=== PATIENT | female | born 1980 | race Caucasian/White ===

== ENCOUNTER 2016-10-16 12:07 | Emergency (ER) | payer MEDICAID, MEDICARE ==
[2016-10-16 12:51] VITALS: BP 108/66
--- NOTE | 2016-10-16 13:48 | EDM.PDOC ---
ED HPI GENERAL MEDICAL PROBLEM - General Chief Complaint: General Stated Complaint: PAIN IN AMPUTATED LEG Time Seen by Provider: 10/16/16 13:30 Source of Information: Reports: Patient History Limitations: Reports: No Limitations - History of Present Illness INITIAL COMMENTS - FREE TEXT/NARRATIVE: Adina presents today with complaints of right stump pain for several days. She reports the pain is throbbing, stabbing and feels like her skin is tearing at times. She reports her prosthetic is not fitting well and she has minimal padding over her femur. Adina also states the pain is different then nerve pain. She denies fever, chills, nausea or new wounds. She also reports she does not take medication for pain and has had no pain medication in the past 30 days. Adina is new to the area, stating she moved from [place], [place] and has had care in [place], [place] as well as [facility] in the [facility]. 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: Reports: Acetaminophen, NSAIDS Right Leg Pain Score (Numeric/FACES): 10 - Related Data Allergies Allergy/AdvReac Type Severity Reaction Status Date / Time No Known Allergies Allergy Verified 11/26/12 14:59 Home Meds: Home Meds Fludrocortisone [Fludrocortisone Acetate] 0.1 mg PO DAILY 11/26/12 [History] Hydrocortisone [Cortef] 1.5 tab PO DAILY 11/26/12 [History] ALPRAZolam [Xanax] 0.5 mg PO DAILY PRN 11/15/14 [History] PARoxetine [Paxil] 40 mg PO DAILY 11/15/14 [History] Past Medical History Other Musculoskeletal History: 6 surgeries on right ankle Other Immunologic History: addisons disease - Past Surgical History Other Musculoskeletal Surgeries/Procedures:: R BKA Social & Family History - Tobacco Use Smoking Status *Q: Unknown Ever Smoked Years of Tobacco use: 17 Packs/Tins Daily: 0.5 Used Tobacco, but Quit: No Second Hand Smoke Exposure: Yes - Alcohol Use Days Per Week of Alcohol Use: 0 - Recreational Drug Use Recreational Drug Use: No Drug Use in Last 12 Months: No 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 - Living Situation & Occupation Living situation: Reports: Single, with Significant Other Occupation: Employed ED ROS GENERAL - Review of Systems Review Of Systems: See Below Constitutional: Denies: Fever, Chills, Malaise, Weakness, Fatigue, Night Sweats , Decreased Appetite HEENT: Reports: No Symptoms Respiratory: Denies: Shortness of Breath, Wheezing, Cough, Sputum, Hemoptysis Cardiovascular: Denies: Chest Pain, Blood Pressure Problem, Dyspnea on Exertion , Edema, Lightheadedness, Palpitations, Syncope Endocrine: Reports: No Symptoms GI/Abdominal: Denies: Abdominal Pain, Constipation, Diarrhea, Flatus, Nausea, Vomiting : Denies: Flank Pain, Frequency, Hematuria, Incontinence, Pain, Urgency Musculoskeletal: Reports: Other (Right above knee amputee pain in stump) Skin: Denies: Bruising, Pruritis, Rash, Erythema, Wound, Change in Color, Lesions Neurological: Denies: Confusion, Dizziness, Headache, Numbness, Tingling, Weakness Psychiatric: Reports: No Symptoms Hematologic/Lymphatic: Reports: No Symptoms Immunologic: Reports: No Symptoms ED EXAM, GENERAL - Physical Exam Exam: See Below Exam Limited By: No Limitations General Appearance: Alert, WD/WN, No Apparent Distress Eye Exam: Bilateral Eye: EOMI, PERRL Ears: Normal External Exam, Normal Canal, Hearing Grossly Normal, Normal TMs Ear Exam: Bilateral Ear: Auricle Normal, Canal Normal, TM normal Nose: Normal Inspection, Normal Mucosa, No Blood Throat/Mouth: Normal Inspection, Normal Lips, Normal Teeth, Normal Gums, Normal Oropharynx, Normal Voice, No Airway Compromise Head: Atraumatic, Normocephalic Neck: Normal Inspection, Supple, Non-Tender, Full Range of Motion. No: Lymphadenopathy (R), Lymphadenopathy (L) Respiratory/Chest: No Respiratory Distress, Lungs Clear, Normal Breath Sounds, No Accessory Muscle Use, Chest Non-Tender Cardiovascular: Normal Peripheral Pulses, Regular Rate, Rhythm, No Edema, No Gallop, No Murmur, No Rub Peripheral Pulses: 2+: Radial (L), Radial (R), Femoral (L), Femoral (R), Dorsalis Pedis (L) GI/Abdominal: Normal Bowel Sounds, Soft, Non-Tender, No Organomegaly, No Distention, No Mass Back Exam: Normal Inspection, Full Range of Motion. No: CVA Tenderness (R), CVA Tenderness (L) Extremities: Normal Inspection, Normal Range of Motion, No Pedal Edema, Normal Capillary Refill, Leg Pain, Other (Pain with palpation over right stump and distal femur. ). No: Limited Range of Motion, Increased Warmth, Pallor, Redness Neurological: Alert, Oriented, CN II-XII Intact, Normal Cognition, No Motor/ Sensory Deficits Psychiatric: Normal Affect, Normal Mood Skin Exam: Warm, Dry, Intact, Normal Color, No Rash, Other (No areas of fluctuance. ) Lymphatic: No Adenopathy Course - Vital Signs Last Recorded V/S: Last Vital Signs Temp 36.1 C 10/16/16 13:09 Pulse 78 10/16/16 13:09 Resp 16 10/16/16 13:09 BP 108/66 10/16/16 13:09 Pulse Ox 98 10/16/16 13:09 - Orders/Labs/Meds Orders: Active Orders 24 hr Category Date Time Status Femur Min 2V Rt [CR] Stat Exams 10/16/16 13:41 Taken BASIC METABOLIC PANEL,BMP [CHEM] Stat Lab 10/16/16 13:52 Received Labs: Laboratory Tests 10/16/16 10/16/16 10/16/16 Range/Units 13:52 13:57 14:15 WBC 13.1 H (4.5-11.0) K/uL RBC 5.28 (3.30-5.50) M/uL Hgb 15.3 H D (12.0-15.0) g/dL Hct 43.2 (36.0-48.0) % MCV 82 (80-98) fL MCH 29 (27-31) pg MCHC 35 (32-36) % Plt Count 354 (150-400) K/uL Neut % (Auto) 65 (36-66) % Lymph % (Auto) 30 (24-44) % [place] % (Auto) 4 (2-6) % Eos % (Auto) 1 L (2-4) % Baso % (Auto) 1 (0-1) % Urine Color Yellow Urine Appearance Clear Urine pH 5.0 (4.5-8.0) Ur Specific [place]el 1.015 (1.008-1.030) Urine Protein Negative (NEGATIVE) mg/dL Urine Glucose (UA) Normal (NEGATIVE) mg/dL Urine Ketones Negative (NEGATIVE) mg/dL Urine Occult Blood Negative (NEGATIVE) Urine Nitrite Negative (NEGATIVE) Urine Bilirubin Negative (NEGATIVE) Urine Urobilinogen Normal (NORMAL) mg/dL Ur Leukocyte Esterase Negative (NEGATIVE) Urine RBC 0-5 (0-5) Urine WBC Not seen (0-5) Ur Epithelial Cells Rare Amorphous Sediment Not seen Urine Bacteria Not seen Urine Mucus Not seen Urine Opiates Screen Negative (NEGATIVE) Ur Oxycodone Screen Negative (NEGATIVE) Urine Methadone Screen Negative (NEGATIVE) Ur Propoxyphene Screen Negative (NEGATIVE) Ur Barbiturates Screen Negative (NEGATIVE) Ur Tricyclics Screen Negative (NEGATIVE) Ur Phencyclidine Scrn Negative (NEGATIVE) Ur Amphetamine Screen Negative (NEGATIVE) U Methamphetamines Scrn Negative (NEGATIVE) Urine MDMA Screen Negative (NEGATIVE) U Benzodiazepines Scrn Negative (NEGATIVE) U Cocaine Metab Screen Negative (NEGATIVE) U Marijuana (THC) Screen Negative (NEGATIVE) Meds: Medications Discontinued Medications Generic Name Dose Route Start Last Admin Trade Name Freq PRN Reason Stop Dose Admin Ketorolac Tromethamine 60 mg 10/16/16 14:16 10/16/16 14:19 Toradol IM 10/16/16 14:17 60 mg ONETIME ONE Administration - Radiology Interpretation Free Text/Narrative:: X-ray of femur reviewed, wet read, no acute findings. Radiologist read pending. - Re-Assessments/Exams Free Text/Narrative Re-Assessment/Exam: 10/16/16 14:00 [place] OYSTER PREPARER reviewed. No fills of opiate medication in the state of [place]. Fills in the state of [place]: 09/21/2016 oxycodone HCL 5mg #60 for 30 days. 08/24/2016 oxycodone HCL 5mg #60 for 30 days. 07/27/2016 oxycodone HCL 5mg #60 for 30 days. 07/14/2016 oxycodone HCL 5mg #30 for 15 days. 07/14/2016 Alprazolam 0.5mg #10 for 10 days. 10/16/16 14:29 Discussed completed lab work, OYSTER PREPARER and opiate use with patient. Patient will receive toradol IM, follow up and establish care with a provider at [facility] for further pain control. Free Text/Narrative Re-Assessment/Exam: 10/16/16 14:25 She will be provided contact information to establish care with a local provider. Departure - Departure Time of Disposition: 14:30 Disposition: Home, Self-Care 01 Condition: Good Clinical Impression: Pain of right lower extremity, H/O above knee amputation - Discharge Information Instructions: Phantom Limb Pain Referrals: PCP,None [Primary Care Provider] - Forms: ED Department Discharge Additional Instructions: You are suffering pain to your right stump. You were given toradol 60mg IM in the ER. You can continue to take the oxycodone you filled in [place]. Any other oxycodone will need to come from your primary provider. You can take ibuprofen and acetaminophen as directed for pain. There are no acute findings with the lab work and x-rays completed today. Management of your pain is best done with a primary care provider as well as working with a prosthetic specialist to maximize function and pain control. Make an appointment to establish care with a provider at [facility]. You would be best served with a referral from [facility] to a prosthetic specialist in the future. - My Orders Last 24 Hours: My Active Orders 10/16/16 13:41 Femur Min 2V Rt [CR] Stat 10/16/16 13:52 BASIC METABOLIC PANEL,BMP [CHEM] Stat - Assessment/Plan Last 24 Hours: My Active Orders 10/16/16 13:41 Femur Min 2V Rt [CR] Stat 10/16/16 13:52 BASIC METABOLIC PANEL,BMP [CHEM] Stat Assessment:: AKA right Painful right stump No acute lab or radiographic findings Plan: You are suffering pain to your right stump. You were given toradol 60mg IM in the ER. You can continue to take the oxycodone you filled in [place]. Any other oxycodone will need to come from your primary provider. You can take ibuprofen and acetaminophen as directed for pain. There are no acute findings with the lab work and x-rays completed today. Management of your pain is best done with a primary care provider as well as working with a prosthetic specialist to maximize function and pain control. Make an appointment to establish care with a provider at [facility]. You would be best served with a referral from [facility] to a prosthetic specialist in the future.
[2016-10-16] MEDS ORDERED: Ketorolac 60 MG/2 ML SDV IM ONE (14:16)
--- NOTE | 2016-10-16 14:48 | CR ---
Femur Min 2V Rt INDICATION: pain to right stump above knee amputation COMPARISON: None FINDINGS: 2 views. Amputation mid femoral shaft. No acute bony abnormality. Vascular stent in the p tylor.
== END 2016-10-16 15:01 | disposition home or self-care (01) ==
LOC: JP.ED 12:07
DX: M79.661 Pain in right lower leg (principal); Z89.611 Acquired absence of right leg above knee; Z79.899 Other long term (current) drug therapy; Z98.890 Other specified postprocedural states; X58.XXXA Exposure to other specified factors, initial encounter
CPT/HCPCS: 36415; 73552; 80048; 80305; 81001; 85025; 96372; 99284; J1885

== ENCOUNTER 2016-12-09 16:00 | Emergency (ER) | payer MEDICAID, MEDICARE ==
[2016-12-09] MEDS ORDERED: methylPREDNISolone Sodium Succinate 125 MG/2 ML SDV IVPUSH ONE (17:13)
[2016-12-09] MEDS ORDERED: Lactated Ringers 1,000 ML IV SCH (17:15)
[2016-12-09] MEDS ORDERED: Piperacillin/Tazobactam 4.5 GM in Sodium Chloride 0.9% 100 ML IV SCH (17:15)
[2016-12-09] MEDS ORDERED: EPINEPHrine 1:10,000 1 MG/10 ML Syringe IV ONE ×6 (17:17→18:05)
[2016-12-09] MEDS: EPINEPHrine 1:10,000 1 MG/10 ML Syringe IV SCH ×6 (17:17→18:05)
[2016-12-09] MEDS ORDERED: Atropine 0.1 MG/ML 10 ML Syringe IV ONE (17:41)
[2016-12-09] MEDS ORDERED: Atropine 0.1 MG/ML 10 ML Syringe IVPUSH ONE (17:41)
[2016-12-09] MEDS ORDERED: Dextrose 5%-Lactated Ringers 1,000 ML IV ONE (18:03)
[2016-12-09] MEDS ORDERED: Dextrose 5%-Lactated Ringers 1,000 ML IV SCH (18:03)
[2016-12-09] MEDS ORDERED: Sodium Chloride 0.9% 1,000 ML IV SCH (18:05)
[2016-12-09] MEDS ORDERED: Sodium Chloride 0.9% 1,000 ML IV ONE (18:05)
[2016-12-09] MEDS ORDERED: Lactated Ringers 1,000 ML IV ONE ×2 (18:05→18:13)
[2016-12-09] MEDS ORDERED: Rocuronium 50 MG/5 ML Vial IV ONE ×2 (18:26→18:27)
[2016-12-09] MEDS ORDERED: Rocuronium 50 MG/5 ML Vial ONE (18:27)
[2016-12-09] MEDS ORDERED: Sugammadex Sodium 200 MG/2 ML VIAL ONE (18:29)
[2016-12-09] MEDS ORDERED: Dextrose 5% in Water 250 ML ONE (18:43)
[2016-12-09] MEDS ORDERED: Piperacillin/Tazobactam 3.375 GM in Sodium Chloride 0.9% 50 ML IV ONE (19:00)
[2016-12-09] MEDS ORDERED: Piperacillin/Tazobactam 3.375 GM in Sodium Chloride 0.9% 50 ML IV SCH (19:00)
--- NOTE | 2016-12-09 19:05 | EDM.PDOC ---
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 On initial evaluation she did communicate with nursing staff able to get past medical history and medications completed as well as basic charting initial vital signs appeared stable. I presented to the room for examination she did not communicate with me however she had spontaneous respirations with pulse that was tachycardic and blood pressure still maintained peripheral pulse was palpable but sure skin was mildly I left the room to write orders and labs to get a workup started for sepsis. The nurse states she was still able to communicate with this patient while she was trying to establish an IV she became unresponsive CODE BLUE was called Generalized Pain Score (Numeric/FACES): 9 - Related Data Allergies Allergy/AdvReac Type Severity Reaction Status Date / Time No Known Allergies Allergy Verified 12/09/16 16:32 Home Meds: Home Meds ALPRAZolam [Alprazolam] 0.5 mg PO BEDTIME PRN 12/09/16 [History] Fludrocortisone [Florinef] 0.1 mg PO BIDMEALS 12/09/16 [History] Gabapentin [Neurontin] 300 mg PO TID 12/09/16 [History] Hydrocortisone 15 mg PO BID 12/09/16 [History] PARoxetine [Paxil] 40 mg PO DAILY 12/09/16 [History] oxyCODONE 5 mg PO Q4H PRN 12/09/16 [History] Past Medical History Respiratory History: Reports: Asthma, PE Genitourinary History: Reports: Acute Renal Failure 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 - Infectious Disease History Infectious Disease History: Reports: MRSA - Past Surgical History Musculoskeletal Surgical History: Reports: Amputation Social & Family History - Tobacco Use Smoking Status *Q: Current Every Day Smoker Years of Tobacco use: 15 Packs/Tins Daily: 0.5 - Caffeine Use Caffeine Use: Reports: None - Recreational Drug Use Recreational Drug Use: No ED ROS GENERAL - Review of Systems Review Of Systems: Unable To Obtain ED EXAM, GENERAL - Physical Exam Exam: See Below Free Text/Narrative:: On initial evaluation she was lynn ashen color noncommunicative but still moving extremities skin was starting to model pedal pulse was palpable +1 fingertips were blue spontaneous respiration with a tachycardic rate and rhythm S1 and S2. CODE BLUE Upon calling the code compressions were started immediately no respirations were noted no pulse was palpable no organizing risen was noted on the monitor. Please see code sheet for details on medication doses and times initially an IV could not be established proceeded to and I'll which was established below the left knee during compressions 1 mg epinephrine I O was provided rhythm check at that time revealed no respirations asystole oral airway was placed bag valve mask respirations were initiated Cipriano was placed continued with chest compressions. Next 125 mg Solu-Medrol was given IO the code continued for about 35 minutes at which time she received a total of 6 mg epinephrine with 0.5 mg of atropine attempted to do an advanced airway but could not pass the bougie more than 1 inch down the trachea elected to place a William airway which did provide adequate ventilation per bag with end-tidal CO2 in the yellow region however not bright yellow. An ultrasound was used in between rhythm checks which did show cardiac activity no palpable pulses were noted ventricle showed minimal fluid. At the end of the code with multiple asystole during rhythm check she developed an organized rhythm which appeared to be a wide complex tachycardia at a rate about 1:30 this then narrowed to a narrow complex tachycardia at around 110. Compressions were stopped at that time proceeded to try and gain better IV access fluids were running to the IO at maximum rate. A subclavian line was placed with the assistance of Dr. Rodas hospitalist, this provided better fluid boluses for total of 4 L also which time a norepinephrine drip was started at 4 mics provided a palpable pulse and a measurable blood pressure. Anesthesia had arrived to place a definitive airway she was given 30 mg Zemuron a 7.0 ET tube was placed please see anesthesia notes for details of procedure. After stabilized vital signs lab draw was performed chest x-ray performed blood cultures drawn. Antibiotics of Zosyn went with the helicopter crew, was given 1 amp of sodium bicarbonate. Transferred via EMS air care Course - Vital Signs Last Recorded V/S: Last Vital Signs Temp 100.2 F 12/09/16 16:15 Pulse 63 12/09/16 16:15 Resp 20 12/09/16 16:15 BP 137/80 12/09/16 16:15 Pulse Ox - Orders/Labs/Meds Orders: Active Orders 24 hr Category Date Time Status Vital Signs [RC] Q1H Care 12/09/16 17:12 Active Chest 1V Frontal [CR] Stat Exams 12/09/16 Taken CULTURE BLOOD [BC] Urgent Lab 12/09/16 16:05 Received CULTURE BLOOD [BC] Urgent Lab 12/09/16 18:50 Received DRUG SCREEN, URINE [URCHEM] Stat Lab 12/09/16 17:13 Uncollected UA W/MICROSCOPIC [URIN] Stat Lab 12/09/16 17:13 Uncollected Lactated Ringers [Ringers, Lactated] 1,000 ml Med 12/09/16 17:15 Active IV ASDIRECTED Piperacillin/Tazobactam [Zosyn] 3.375 gm Med 12/09/16 19:00 Active Sodium Chloride 0.9% [Normal Saline] 50 ml IV Q6H Piperacillin/Tazobactam [Zosyn] 4.5 gm Med 12/09/16 17:15 Active Sodium Chloride 0.9% [Normal Saline] 100 ml IV Q6H Vancomycin 1 gm Med 12/09/16 18:47 Active Sodium Chloride 0.9% [Normal Saline] 250 ml IV ONETIME Blood Culture x2 Reflex Set [OM.PC] Urgent Oth 12/09/16 17:12 Ordered Medication Orders Lactated Ringer's (Ringers, Lactated) 1,000 mls @ 125 mls/hr IV ASDIRECTED GABRIEL Piperacillin Sod/Tazobactam (Sod 4.5 gm/ Sodium Chloride) 100 mls @ 200 mls/hr IV Q6H GABRIEL Piperacillin Sod/Tazobactam (Sod 3.375 gm/ Sodium Chloride) 50 mls @ 100 mls/ hr IV Q6H GABRIEL Vancomycin HCl 1 gm/ Sodium (Chloride) 250 mls @ 150 mls/hr IV ONETIME ONE Stop: 12/09/16 20:26 Labs: Laboratory Tests 12/09/16 12/09/16 12/09/16 Range/Units 18:08 18:08 18:08 WBC 33.8 H* (4.5-11.0) K/uL RBC 4.82 (3.30-5.50) M/uL Hgb 14.0 (12.0-15.0) g/dL Hct 40.8 (36.0-48.0) % MCV 85 (80-98) fL MCH 29 (27-31) pg MCHC 34 (32-36) % Plt Count 269 (150-400) K/uL Add Manual Diff Yes Neutrophils % (Manual) 55 (36-66) % Band Neutrophils % 16 H (5-11) % Lymphocytes % (Manual) 22 L (24-44) % Monocytes % (Manual) 7 H (2-6) % Puncture Site ABG pH (7.350-7.450) ABG pCO2 (35.0-42.0) mmHg ABG pO2 (75.0-100.0) mmHg ABG HCO3 (22.0-26.0) mmol/L ABG Total CO2 (21.0-25.0) mmol/L ABG O2 Saturation (95.0-98.0) % ABG O2 Content (15.0-23.0) %vol ABG Base Excess mm/L ABG Hemoglobin (12.0-16.0) g/dL ABG Oxyhemoglobin % ABG Carboxyhemoglobin (0.0-1.6) % ABG Methemoglobin % Alf Test O2 Delivery Device Sodium 136 L (140-148) mmol/L Potassium 5.2 (3.6-5.2) mmol/L Chloride 104 (100-108) mmol/L Carbon Dioxide 10 L (21-32) mmol/L Anion Gap 27.2 H (5.0-14.0) mmol/L BUN 37 H (7-18) mg/dL Creatinine 3.4 H (0.6-1.0) mg/dL Est Cr Clr Drug Dosing 21.62 mL/min Estimated GFR (MDRD) 15 L (>60) Glucose 263 H (74-106) mg/dL Lactic Acid 12.4 H (0.4-2.0) mmol/L Calcium 6.8 L* (8.5-10.1) mg/dL Total Bilirubin 0.3 (0.2-1.0) mg/dL AST 575 H (15-37) U/L ALT 512 H (12-78) U/L Alkaline Phosphatase 59 (46-116) U/L C-Reactive Protein 9.09 H (0.0-0.3) mg/dL Total Protein 3.2 L (6.4-8.2) g/dL Albumin 1.3 L (3.4-5.0) g/dL Globulin 1.9 L (2.3-3.5) g/dL Albumin/Globulin Ratio 0.7 L (1.2-2.2) Salicylates (2.0-20.0) mg/dL Acetaminophen (10.0-30.0) ug/mL 12/09/16 12/09/16 12/09/16 Range/Units 18:08 18:08 18:53 WBC (4.5-11.0) K/uL RBC (3.30-5.50) M/uL Hgb (12.0-15.0) g/dL Hct (36.0-48.0) % MCV (80-98) fL MCH (27-31) pg MCHC (32-36) % Plt Count (150-400) K/uL Add Manual Diff Neutrophils % (Manual) (36-66) % Band Neutrophils % (5-11) % Lymphocytes % (Manual) (24-44) % Monocytes % (Manual) (2-6) % Puncture Site A-line ABG pH 6.818 L* (7.350-7.450) ABG pCO2 49.4 H (35.0-42.0) mmHg ABG pO2 158.0 H (75.0-100.0) mmHg ABG HCO3 7.6 L (22.0-26.0) mmol/L ABG Total CO2 8.5 L (21.0-25.0) mmol/L ABG O2 Saturation 95.5 (95.0-98.0) % ABG O2 Content 12.1 L (15.0-23.0) %vol ABG Base Excess -25.2 mm/L ABG Hemoglobin 8.8 L (12.0-16.0) g/dL ABG Oxyhemoglobin 95.3 % ABG Carboxyhemoglobin -0.6 L (0.0-1.6) % ABG Methemoglobin 0.8 % Alf Test Pass O2 Delivery Device Resuscitation bag Sodium (140-148) mmol/L Potassium (3.6-5.2) mmol/L Chloride (100-108) mmol/L Carbon Dioxide (21-32) mmol/L Anion Gap (5.0-14.0) mmol/L BUN (7-18) mg/dL Creatinine (0.6-1.0) mg/dL Est Cr Clr Drug Dosing mL/min Estimated GFR (MDRD) (>60) Glucose (74-106) mg/dL Lactic Acid (0.4-2.0) mmol/L Calcium (8.5-10.1) mg/dL Total Bilirubin (0.2-1.0) mg/dL AST (15-37) U/L ALT (12-78) U/L Alkaline Phosphatase (46-116) U/L C-Reactive Protein (0.0-0.3) mg/dL Total Protein (6.4-8.2) g/dL Albumin (3.4-5.0) g/dL Globulin (2.3-3.5) g/dL Albumin/Globulin Ratio (1.2-2.2) Salicylates 2.7 (2.0-20.0) mg/dL Acetaminophen 0.0 L (10.0-30.0) ug/mL Meds: Medications Generic Name Dose Route Start Last Admin Trade Name Freq PRN Reason Stop Dose Admin Lactated Ringer's 1,000 mls @ 125 mls/hr 12/09/16 17:15 Ringers, Lactated IV ASDIRECTED GABRIEL Piperacillin Sod/Tazobactam 100 mls @ 200 mls/hr 12/09/16 17:15 Sod 4.5 gm/ Sodium Chloride IV Q6H GABRIEL Piperacillin Sod/Tazobactam 50 mls @ 100 mls/hr 12/09/16 19:00 Sod 3.375 gm/ Sodium Chloride IV Q6H GABRIEL Vancomycin HCl 1 gm/ Sodium 250 mls @ 150 mls/hr 12/09/16 18:47 Chloride IV 12/09/16 20:26 ONETIME ONE Discontinued Medications Generic Name Dose Route Start Last Admin Trade Name Freq PRN Reason Stop Dose Admin Heparin Sodium (Porcine) Confirm 12/09/16 18:40 Heparin Lock Flush 100 Units/Ml Administered 10/07/17 18:41 Dose 500 units .ROUTE .STK-MED ONE Heparin Sodium (Porcine) Confirm 12/09/16 18:52 Heparin Lock Flush 100 Units/Ml Administered 12/09/16 18:53 Dose 500 units .ROUTE .STK-MED ONE Dextrose/Water Confirm 12/09/16 18:43 Dextrose 5% In Water Administered 12/09/16 18:44 Dose 250 mls @ as directed .ROUTE .STK-MED ONE Methylprednisolone Sodium Succinate 125 mg 12/09/16 17:13 Solu-Medrol IVPUSH 12/09/16 17:14 ONETIME ONE Rocuronium [place] Confirm 12/09/16 18:27 Zemuron Administered 12/09/16 18:28 Dose 50 mg .ROUTE .STK-MED ONE Sodium Bicarbonate 50 meq 12/09/16 19:12 Sodium Bicarbonate 8.4% IVPUSH 12/09/16 19:13 ONETIME ONE Departure - Departure Time of Disposition: 19:43 Disposition: DC/Tfer to Acute Hospital 02 Condition: Poor Clinical Impression: Cardiac arrest, Septic shock - Discharge Information Referrals: PCP,None [Primary Care Provider] - Forms: ED Department Discharge - My Orders Last 24 Hours: My Active Orders 12/09/16 Chest 1V Frontal [CR] Stat 12/09/16 16:05 CULTURE BLOOD [BC] Urgent 12/09/16 17:12 Vital Signs [RC] Q1H Blood Culture x2 Reflex Set [OM.PC] Urgent 12/09/16 17:13 DRUG SCREEN, URINE [URCHEM] Stat UA W/MICROSCOPIC [URIN] Stat 12/09/16 17:15 Lactated Ringers [Ringers, Lactated] 1,000 ml IV ASDIRECTED Piperacillin/Tazobactam [Zosyn] 4.5 gm Sodium Chloride 0.9% [Normal Saline] 100 ml IV Q6H 12/09/16 18:47 Vancomycin 1 gm Sodium Chloride 0.9% [Normal Saline] 250 ml IV ONETIME 12/09/16 18:50 CULTURE BLOOD [BC] Urgent 12/09/16 19:00 Piperacillin/Tazobactam [Zosyn] 3.375 gm Sodium Chloride 0.9% [Normal Saline] 50 ml IV Q6H - Assessment/Plan Last 24 Hours: My Active Orders 12/09/16 Chest 1V Frontal [CR] Stat 12/09/16 16:05 CULTURE BLOOD [BC] Urgent 12/09/16 17:12 Vital Signs [RC] Q1H Blood Culture x2 Reflex Set [OM.PC] Urgent 12/09/16 17:13 DRUG SCREEN, URINE [URCHEM] Stat UA W/MICROSCOPIC [URIN] Stat 12/09/16 17:15 Lactated Ringers [Ringers, Lactated] 1,000 ml IV ASDIRECTED Piperacillin/Tazobactam [Zosyn] 4.5 gm Sodium Chloride 0.9% [Normal Saline] 100 ml IV Q6H 12/09/16 18:47 Vancomycin 1 gm Sodium Chloride 0.9% [Normal Saline] 250 ml IV ONETIME 12/09/16 18:50 CULTURE BLOOD [BC] Urgent 12/09/16 19:00 Piperacillin/Tazobactam [Zosyn] 3.375 gm Sodium Chloride 0.9% [Normal Saline] 50 ml IV Q6H Plan: Assessment Acuity = acute Site and laterality = cardiac arrest, systemic shock cardiogenic Etiology = unclear etiology Manifestations = intubation on pressors Location of injury = Home Lab values = WBC elevated at 33.8 consistent leukocytosis, sodium low at 136 consistent hyponatremia creatinine elevated at 3.4 consistent with acute renal failure stage G for lactic acid elevated 12.4 calcium low at 6.8 consistent hypocalcemia AST elevated 575 ALTs elevated at 512 consistent elevated liver enzymes CRP elevated 9.09 and albumin low at 3.2 consistent hypoalbuminemia Plan Discussed case with Dr. Vickers learning design specialist [facility] Critical care time 90 minutes Patient was in agreement with the plan all questions were answered, they were instructed to return to the emergency department or call for worsening symptoms. This note was dictated using [employer] voice recognition software please call with any questions.
[2016-12-09] MEDS ORDERED: Sodium Bicarbonate 8.4% 50 MEQ/50 ML Syringe IVPUSH ONE (19:12)
--- NOTE | 2016-12-09 20:56 | PCM.SN ---
- Free Text/Narrative Note: This patient is a 36-year-old woman who I was asked to see by Dr. stark persistent in management during a code and critical care situation in the emergency department. Despite her relatively young age she has a history of significant medical problems including Champaign's disease since . 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 She has had previous episodes of sepsis and severe illness. She arrived at the emergency department weak, initially had adequate blood pressure associated with a sinus tachycardia. After initial intake the nurse returned to check on her and found her to be unresponsive with no palpable pulse or blood pressure. Code was called and CPR initiated. Initially she was found to have asystole, received 6 doses of epinephrine and also during the course of this receive some atropine. Recheck of heart rhythm showed that she was in fine ventricular fibrillation and she was defibrillated, after that was in sinus rhythm with no obtainable blood pressure. It was estimated that she had received approximately [address] stark placed a William tube for airway management and she was being bagged with supplemental oxygen during this period of time. A central line was placed in the right subclavian vein and she was given vigorous fluid resuscitation. With these interventions her systolic pressure came up to the low 80s. Norepinephrine was initiated at 4 g, following this pressure stabilized and was 104/62 at the time of transfer. Anesthesia was called and Mr. Vanegas is able to place an endotracheal tube. She had adequate oxygenation following intubation. She will be transferred to [facility] in [facility] via air ambulance. 90 minutes of critical care time was spent in the emergency department providing direct management up until the time of transport.
--- NOTE | 2016-12-10 00:31 | ANES ---
DATE OF SERVICE: 12/09/2016 Adina is a 36-year-old female patient, in our emergency room. I was requested to respond for the patient in cardiac arrest, needing airway by Dr. cAuna Officer, DARA #[id number]. Upon arrival, I found the patient unresponsive, being ventilated with a [place] Airway with an oxygenation of 97%, heart rate of 110, and blood pressure palpated at 80. The patient was very rigid, infused 30 mg after finding no contraindication to medication as far as allergies and the patient's history. The patient at that point had been in cardiac arrest for quite some time prior to my arrival. I placed a #7.5 endotracheal tube with ease, good visualization of the vocal cords with cricoid pressure. Upon completion, cuff was inflated. I had moisture in the endotracheal tube with bilateral chest rise with lung sounds with positive end-tidal CO2. I secured the tube at 23 cm. The patient tolerated that procedure quite well. No change in vital signs at that point, although she did deoxygenate to 80 in the short time that it took me to place endotracheal tube with it back up to 100% upon completion. I reported off to Dr. Lin and again no change in the patient's status at that point. Jadiel Vanegas CRNA /[id number]
--- NOTE | 2016-12-11 09:36 | CR ---
Portable chest There is a nasogastric tube coiled within the stomach. There is a endotracheal tube positioned with t he tip 4 cm above the yvonne. There is a right central venous catheter descending down into the SVC. There are shallow lung volumes. There is basilar atelectasis. There are no infiltrates or effusions. Impression: 1. Tubes and lines as described above. 2. Shallow lung volumes with basilar atelectasis.
[2016-12-12 12:19] VITALS: BP 82/00
== END 2016-12-09 19:25 ==
LOC: JP.ED 16:00 → EDBD 16:00 → MERGE 16:00 → JP.ED 19:25
DX: A41.9 Sepsis, unspecified organism (principal); I46.9 Cardiac arrest, cause unspecified; R65.21 Severe sepsis with septic shock; F17.210 Nicotine dependence, cigarettes, uncomplicated
CPT/HCPCS: 31500; 36415; 36556; 36600; 71010; 80053; 82803; 83605; 85025; 86140; 87040; 92950; 93005; 93010; 96365; 96375; 99291; 99292; G0480; J0171; J0461; J2543; J2930; J7040; J7042; J7050; J7060; J7120; 99285-25

== ENCOUNTER 2017-03-18 13:33 | Emergency (ER) | payer MEDICAID ==
[2017-03-18 14:10] VITALS: BP 113/74
--- NOTE | 2017-03-18 14:32 | EDM.PDOC ---
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 Right Leg Pain Score (Numeric/FACES): 7 - Related Data Allergies Allergy/AdvReac Type Severity Reaction Status Date / Time No Known Allergies Allergy Verified 03/18/17 13:54 Home Meds: Home Meds Hydrocortisone [Cortef] 1.5 tab PO DAILY 11/26/12 [History] Fludrocortisone [Florinef] 0.1 mg PO BIDMEALS 12/09/16 [History] Hydrocortisone 10 mg PO BEDTIME 12/09/16 [History] PARoxetine [Paxil] 40 mg PO DAILY 12/09/16 [History] oxyCODONE 5 mg PO BID PRN 12/09/16 [History] Past Medical History Cardiovascular History: Reports: Blood Clots/VTE/DVT, Prior Cardiac Arrest ( December 2016), Other (See Below) Other Cardiovascular History: blood clot in heart in 2015 Respiratory History: Reports: Asthma, Bronchitis, Recurrent, PE Genitourinary History: Reports: Acute Renal Failure 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: Musculoskeletal History: Reports: Osteoarthritis, Other (See Below) Other Musculoskeletal History: spinalstenosis Psychiatric History: Reports: Anxiety, Depression 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 Hematologic History: Reports: Anticoagulation Therapy, Blood Transfusion(s) Immunologic History: Reports: Immunosuppression, Other (See Below) 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 - Infectious Disease History Infectious Disease History: Reports: Chicken Pox, Mononucleosis, MRSA, Other ( See Below) Other Infectious Disease History: 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 - Living Situation & Occupation Living situation: Reports: Single, with Significant Other Occupation: Employed Review of Systems - Review of Systems Review Of Systems: See Below Constitutional: Reports: No Symptoms Respiratory: Reports: No Symptoms Cardiovascular: Reports: No Symptoms GI/Abdominal: Reports: No Symptoms Musculoskeletal: Reports: Other (Stump pain) ED EXAM, GENERAL - Physical Exam Exam: See Below Free Text/Narrative:: Examination of her stop on the right side she does have a small bruise about the size of $0.50 piece on the distal aspect there is some edema appreciated of the end of the stump there is no significant erythema not tender to the touch Exam Limited By: No Limitations General Appearance: Alert, WD/WN, No Apparent Distress Respiratory/Chest: No Respiratory Distress Course - Vital Signs Last Recorded V/S: Last Vital Signs Temp 96.8 F 03/18/17 14:08 Pulse 76 03/18/17 14:08 Resp 16 03/18/17 14:08 BP 113/74 03/18/17 14:08 Pulse Ox 98 03/18/17 14:08 - Orders/Labs/Meds Orders: Active Orders 24 hr Category Date Time Status VL Duplex Lwr Ext Veins Ltd Rt [US] Stat Exams 03/18/17 15:27 Ordered Labs: Laboratory Tests 03/18/17 Range/Units 14:47 D-Dimer, Quantitative 1090 H (0.0-400.0) ng/mL Departure - Departure Time of Disposition: 16:21 Disposition: Home, Self-Care 01 Condition: Good Clinical Impression: Contusion of bone - Discharge Information Referrals: Reyes Nunes NP [Primary Care Provider] - Forms: ED Department Discharge Additional Instructions: Please followup with your primary care provider in 3-5 days if not better, please call return to the emergency department with worsening of symptoms. - My Orders Last 24 Hours: My Active Orders 03/18/17 15:27 VL Duplex Lwr Ext Veins Ltd Rt [US] Stat - Assessment/Plan Last 24 Hours: My Active Orders 03/18/17 15:27 VL Duplex Lwr Ext Veins Ltd Rt [US] Stat Plan: Assessment Acuity = acute Site and laterality = bone contusion right leg Etiology = secondary to a fall Manifestations = none Location of injury = Home Lab values = d-dimer was elevated and thousand however ultrasound was negative for DVT Plan Discharged home continue regular medications follow-up with primary care as needed This note was dictated using [employer] voice recognition software please call with any questions on syntax or roxanna.
--- NOTE | 2017-03-19 09:20 | US ---
VL Duplex Lwr Ext Veins Ltd Rt FINDINGS: Duplex imaging was performed from the right common femoral through the popliteal veins. The veins demonstrate complete compressibility without evidence of intraluminal thrombus. There is lupis l phasic variation of the waveforms with respiration. There is augmented flow with calf compression. IMPRESSION: There is no evidence for right lower extremity deep venous thrombosis.
== END 2017-03-18 16:29 | disposition home or self-care (01) ==
LOC: JP.ED 13:33
DX: T87.89 Other complications of amputation stump (principal); S80.11XA Contusion of right lower leg, initial encounter; Z79.899 Other long term (current) drug therapy; F17.210 Nicotine dependence, cigarettes, uncomplicated; W19.XXXA Unspecified fall, initial encounter
CPT/HCPCS: 36415; 85379; 93971-26; 93971-RT; 99283; 99284-25

== ENCOUNTER 2020-03-07 01:11 | Inpatient (IN) | payer MEDICAID ==
[2020-03-07] MEDS ORDERED: Sodium Chloride 0.9% 10 ML Syringe FLUSH PRN ×2 (01:34→03:16)
[2020-03-07] MEDS ORDERED: Hydrocortisone Sodium Succinate 100 MG/2 ML SDV IVPUSH ONE (01:34)
[2020-03-07] MEDS ORDERED: Sodium Chloride 0.9% 1,000 ML IV ONE ×2 (01:37→01:38)
--- NOTE | 2020-03-07 02:17 | EDM.PDOC ---
ED HPI GENERAL MEDICAL PROBLEM - General Chief Complaint: General Stated Complaint: MEDICAL ON RAMP Time Seen by Provider: 03/07/20 01:25 Source of Information: Reports: Patient, Old Records History Limitations: Reports: No Limitations - History of Present Illness INITIAL COMMENTS - FREE TEXT/NARRATIVE: Adina is a 39-year-old female presenting to the ED for an [place]'s crisis. Patient has a history of [place]'s disease since and is normally on hydrocortisone. She has been contacting her primary care provider, Suzanne Cruz PA-C to refill her hydrocortisone but has not had a response despite several weeks of trying to get this refilled. The patient initially tried to take half the dose of her hydrocortisone over the last several weeks, however, she ran out of the medication completely 10 days ago. She has been experiencing increased fatigue, thirst, chest pain, shortness of breath, diaphoresis, nausea and vomiting over the last several days. 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 Lower Back Pain Score (Numeric/FACES): 8 - Related Data Allergies Allergy/AdvReac Type Severity Reaction Status Date / Time No Known Allergies Allergy Verified 03/07/20 01:26 Home Meds: Home Meds Hydrocortisone [Cortef] 1.5 tab PO DAILY 11/26/12 [History] Fludrocortisone [Florinef] 0.1 mg PO BID 12/09/16 [History] Hydrocortisone 10 mg PO BEDTIME 12/09/16 [History] Albuterol Sulfate [Proair Hfa] 2 puff IH Q4H PRN 03/07/20 [History] DULoxetine [Cymbalta] 60 mg PO DAILY 03/07/20 [History] atorvaSTATin Calcium [Lipitor] 40 mg PO DAILY 03/07/20 [History] cloNIDine HCL [Catapres] 0.1 mg PO BID 03/07/20 [History] tiZANidine HCl [Zanaflex] 2 mg PO Q8H PRN 03/07/20 [History] Past Medical History Cardiovascular History: Reports: Blood Clots/VTE/DVT, Prior Cardiac Arrest, Other (See Below) Other Cardiovascular History: blood clot in heart in 2016 Respiratory History: Reports: Asthma, Bronchitis, Recurrent, PE Genitourinary History: Reports: Acute Renal Failure [employer] History: Reports: Musculoskeletal History: Reports: Osteoarthritis, Other (See Below) Other Musculoskeletal History: spinalstenosis Psychiatric History: Reports: Anxiety, Depression 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 Hematologic History: Reports: Anticoagulation Therapy, Blood Transfusion(s) Immunologic History: Reports: Immunosuppression, Other (See Below) 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 - Infectious Disease History Infectious Disease History: Reports: Chicken Pox, Mononucleosis, MRSA, Other (See Below) Other Infectious Disease History: 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 - Past Surgical History HEENT Surgical History: Reports: Naso-Sinus Surgery, Tonsillectomy Musculoskeletal Surgical History: Reports: Amputation Other Musculoskeletal Surgeries/Procedures:: R BKA Social & Family History - Tobacco Use Tobacco Use Status *Q: Current Every Day Tobacco User Years of Tobacco use: 25 Packs/Tins Daily: 1 Used Tobacco, but Quit: No Second Hand Smoke Exposure: Yes - Caffeine Use Caffeine Use: Reports: Coffee, Soda - Recreational Drug Use Recreational Drug Use: No - Living Situation & Occupation Living situation: Reports: Single, with Significant Other Occupation: Employed ED ROS GENERAL - Review of Systems Review Of Systems: See Below Constitutional: Reports: Malaise, Weakness, Fatigue, Diaphoresis, Decreased Appetite HEENT: Reports: No Symptoms Respiratory: Reports: Shortness of Breath Cardiovascular: Reports: Chest Pain Endocrine: Reports: Fatigue, Polydypsia GI/Abdominal: Reports: Abdominal Pain, Nausea, Vomiting : Reports: No Symptoms Musculoskeletal: Reports: No Symptoms Skin: Reports: No Symptoms Neurological: Reports: Weakness Psychiatric: Reports: No Symptoms Hematologic/Lymphatic: Reports: No Symptoms Immunologic: Reports: No Symptoms ED EXAM, GENERAL - Physical Exam Exam: See Below Exam Limited By: No Limitations General Appearance: Alert, Anxious, Mild Distress Eye Exam: Bilateral Eye: EOMI, PERRL Throat/Mouth: Normal Lips, Normal Voice, Other (Dry mucous membranes) Head: Atraumatic, Normocephalic Neck: Normal Inspection, Supple, Non-Tender, Full Range of Motion. No: Lymphadenopathy (R), Lymphadenopathy (L) Respiratory/Chest: No Respiratory Distress, Lungs Clear, Normal Breath Sounds, No Accessory Muscle Use, Chest Non-Tender Cardiovascular: Normal Peripheral Pulses, Regular Rate, Rhythm, No Edema, No Gallop, No JVD, No Murmur, No Rub Peripheral Pulses: 2+: Radial (L), Radial (R) GI/Abdominal: Normal Bowel Sounds, Soft, Non-Tender, No Organomegaly, No Distention, No Abnormal Bruit, No Mass (Female) Exam: Deferred Rectal (Female) Exam: Deferred Back Exam: Normal Inspection, Full Range of Motion Extremities: Normal Range of Motion, Non-Tender, No Pedal Edema, Other (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) Neurological: Alert, Oriented, Normal Cognition, No Motor/Sensory Deficits Psychiatric: Anxious Skin Exam: Warm, Dry, Intact, Normal Color, No Rash Lymphatic: No Adenopathy Course - Vital Signs Last Recorded V/S: Last Vital Signs Temp 36.1 C 03/07/20 02:15 Pulse 81 03/07/20 02:15 Resp 12 03/07/20 02:15 BP 91/49 L 03/07/20 02:15 Pulse Ox 96 03/07/20 02:15 - Orders/Labs/Meds Orders: Active Orders 24 hr Category Date Time Status ACTH, PLASMA Stat Lab 03/07/20 01:57 Received Sodium Chloride 0.9% [Normal Saline] 1,000 ml Med 03/07/20 01:37 Active IV .BOLUS Sodium Chloride 0.9% [Normal Saline] 1,000 ml Med 03/07/20 01:38 Active IV .BOLUS Sodium Chloride 0.9% [Saline Flush] Med 03/07/20 01:34 Active 10 ml FLUSH ASDIRECTED PRN Saline Lock Insert [OM.PC] Routine Oth 03/07/20 01:34 Ordered Medication Orders Sodium Chloride (Normal Saline) 1,000 mls @ 999 mls/hr IV .BOLUS ONE Stop: 03/07/20 02:37 Last Admin: 03/07/20 01:55 Dose: 999 mls/hr Documented by: ELEN Sodium Chloride (Normal Saline) 1,000 mls @ 999 mls/hr IV .BOLUS ONE Stop: 03/07/20 02:38 Sodium Chloride (Saline Flush) 10 ml FLUSH ASDIRECTED PRN PRN Reason: Keep Vein Open Labs: Laboratory Tests 03/07/20 03/07/20 Range/Units 01:57 01:57 WBC 11.7 H (4.5-11.0) K/uL RBC 4.94 (3.30-5.50) M/uL Hgb 13.0 (12.0-15.0) g/dL Hct 39.8 (36.0-48.0) % MCV 81 (80-98) fL MCH 26 L (27-31) pg MCHC 33 (32-36) % Plt Count 353 (150-400) K/uL Neut % (Auto) 55 (36-66) % Lymph % (Auto) 34 (24-44) % Stark % (Auto) 9 H (2-6) % Eos % (Auto) 2 (2-4) % Baso % (Auto) 0 (0-1) % Sodium 130 L (140-148) mmol/L Potassium 4.1 (3.6-5.2) mmol/L Chloride 97 L (100-108) mmol/L Carbon Dioxide 25 D (21-32) mmol/L Anion Gap 12.1 (5.0-14.0) mmol/L BUN 10 D (7-18) mg/dL Creatinine 0.9 D (0.6-1.0) mg/dL Est Cr Clr Drug Dosing 79.34 mL/min Estimated GFR (MDRD) > 60 (>60) Glucose 104 (74-106) mg/dL Calcium 9.3 D (8.5-10.1) mg/dL Total Bilirubin 0.2 (0.2-1.0) mg/dL AST 22 D (15-37) U/L ALT 35 D (12-78) U/L Alkaline Phosphatase 83 (46-116) U/L Total Protein 7.2 (6.4-8.2) g/dL Albumin 3.2 L (3.4-5.0) g/dL Globulin 4.0 H (2.3-3.5) g/dL Albumin/Globulin Ratio 0.8 L (1.2-2.2) Meds: Medications Generic Name Dose Route Start Last Admin Trade Name Freq PRN Reason Stop Dose Admin Sodium Chloride 1,000 mls @ 999 mls/hr 03/07/20 01:37 03/07/20 01:55 Normal Saline IV 03/07/20 02:37 999 mls/hr .BOLUS ONE Administration Sodium Chloride 1,000 mls @ 999 mls/hr 03/07/20 01:38 Normal Saline IV 03/07/20 02:38 .BOLUS ONE Sodium Chloride 10 ml 03/07/20 01:34 Saline Flush FLUSH ASDIRECTED PRN Keep Vein Open Discontinued Medications Generic Name Dose Route Start Last Admin Trade Name Miriam PRN Reason Stop Dose Admin Hydrocortisone Sodium Succinate 100 mg 03/07/20 01:34 03/07/20 01:53 Solu-Cortef IVPUSH 03/07/20 01:35 100 mg ONETIME ONE Administration - Re-Assessments/Exams Free Text/Narrative Re-Assessment/Exam: 03/07/20 02:29 labs reviewed showing a normal CBC. The comprehensive metabolic panel shows a sodium of 130 Departure - Departure Time of Disposition: 02:30 Disposition: Admitted As Inpatient 67 Condition: Good Clinical Impression: Addisonian crisis - Discharge Information Referrals: PCP,None [Primary Care Provider] - Forms: ED Department Discharge Care Plan Goals: ED HPI GENERAL MEDICAL PROBLEM - General Chief Complaint: General Stated Complaint: MEDICAL ON RAMP Time Seen by Provider: 03/07/20 01:25 Source of Information: Reports: Patient, Old Records History Limitations: Reports: No Limitations - History of Present Illness INITIAL COMMENTS - FREE TEXT/NARRATIVE: Adina is a 39-year-old female presenting to the ED for an [place]'s crisis. Patient has a history of [place]'s disease since and is normally on hydrocortisone. She has been contacting her primary care provider, Suzanne Cruz PA-C to refill her hydrocortisone but has not had a response despite several weeks of trying to get this refilled. The patient initially tried to take half the dose of her hydrocortisone over the last several weeks, however, she ran out of the medication completely 10 days ago. She has been experiencing increased fatigue, thirst, chest pain, shortness of breath, diaphoresis, nausea and vomiting over the last several days. 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 Lower Back Pain Score (Numeric/FACES): 8 - Related Data Allergies Allergy/AdvReac Type Severity Reaction Status Date / Time No Known Allergies Allergy Verified 03/07/20 01:26 Home Meds: Home Meds Hydrocortisone [Cortef] 1.5 tab PO DAILY 11/26/12 [History] Fludrocortisone [Florinef] 0.1 mg PO BID 12/09/16 [History] Hydrocortisone 10 mg PO BEDTIME 12/09/16 [History] Albuterol Sulfate [Proair Hfa] 2 puff IH Q4H PRN 03/07/20 [History] DULoxetine [Cymbalta] 60 mg PO DAILY 03/07/20 [History] atorvaSTATin Calcium [Lipitor] 40 mg PO DAILY 03/07/20 [History] cloNIDine HCL [Catapres] 0.1 mg PO BID 03/07/20 [History] tiZANidine HCl [Zanaflex] 2 mg PO Q8H PRN 03/07/20 [History] Past Medical History Cardiovascular History: Reports: Blood Clots/VTE/DVT, Prior Cardiac Arrest, Other (See Below) Other Cardiovascular History: blood clot in heart in 2015 Respiratory History: Reports: Asthma, Bronchitis, Recurrent, PE Genitourinary History: Reports: Acute Renal Failure [employer] History: Reports: Musculoskeletal History: Reports: Osteoarthritis, Other (See Below) Other Musculoskeletal History: spinalstenosis Psychiatric History: Reports: Anxiety, Depression 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 Hematologic History: Reports: Anticoagulation Therapy, Blood Transfusion(s) Immunologic History: Reports: Immunosuppression, Other (See Below) 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 - Infectious Disease History Infectious Disease History: Reports: Chicken Pox, Mononucleosis, MRSA, Other (See Below) Other Infectious Disease History: 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 - Past Surgical History HEENT Surgical History: Reports: Naso-Sinus Surgery, Tonsillectomy Musculoskeletal Surgical History: Reports: Amputation Other Musculoskeletal Surgeries/Procedures:: R BKA Social & Family History - Tobacco Use Tobacco Use Status *Q: Current Every Day Tobacco User Years of Tobacco use: 25 Packs/Tins Daily: 1 Used Tobacco, but Quit: No Second Hand Smoke Exposure: Yes - Caffeine Use Caffeine Use: Reports: Coffee, Soda - Recreational Drug Use Recreational Drug Use: No - Living Situation & Occupation Living situation: Reports: Single, with Significant Other Occupation: Employed ED ROS GENERAL - Review of Systems Review Of Systems: See Below Constitutional: Reports: Malaise, Weakness, Fatigue, Diaphoresis, Decreased Appetite HEENT: Reports: No Symptoms Respiratory: Reports: Shortness of Breath Cardiovascular: Reports: Chest Pain Endocrine: Reports: Fatigue, Polydypsia GI/Abdominal: Reports: Abdominal Pain, Nausea, Vomiting : Reports: No Symptoms Musculoskeletal: Reports: No Symptoms Skin: Reports: No Symptoms Neurological: Reports: Weakness Psychiatric: Reports: No Symptoms Hematologic/Lymphatic: Reports: No Symptoms Immunologic: Reports: No Symptoms ED EXAM, GENERAL - Physical Exam Exam: See Below Exam Limited By: No Limitations General Appearance: Alert, Anxious, Mild Distress Eye Exam: Bilateral Eye: EOMI, PERRL Throat/Mouth: Normal Lips, Normal Voice, Other (Dry mucous membranes) Head: Atraumatic, Normocephalic Neck: Normal Inspection, Supple, Non-Tender, Full Range of Motion. No: Lymphadenopathy (R), Lymphadenopathy (L) Respiratory/Chest: No Respiratory Distress, Lungs Clear, Normal Breath Sounds, No Accessory Muscle Use, Chest Non-Tender Cardiovascular: Normal Peripheral Pulses, Regular Rate, Rhythm, No Edema, No Gallop, No JVD, No Murmur, No Rub Peripheral Pulses: 2+: Radial (L), Radial (R) GI/Abdominal: Normal Bowel Sounds, Soft, Non-Tender, No Organomegaly, No Distention, No Abnormal Bruit, No Mass (Female) Exam: Deferred Rectal (Female) Exam: Deferred Back Exam: Normal Inspection, Full Range of Motion Extremities: Normal Range of Motion, Non-Tender, No Pedal Edema, Other (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) Neurological: Alert, Oriented, Normal Cognition, No Motor/Sensory Deficits Psychiatric: Anxious Skin Exam: Warm, Dry, Intact, Normal Color, No Rash Lymphatic: No Adenopathy Course - Vital Signs Last Recorded V/S: Last Vital Signs Temp 36.1 C 03/07/20 02:15 Pulse 81 03/07/20 02:15 Resp 12 03/07/20 02:15 BP 91/49 L 03/07/20 02:15 Pulse Ox 96 03/07/20 02:15 - Orders/Labs/Meds Orders: Active Orders 24 hr Category Date Time Status ACTH, PLASMA Stat Lab 03/07/20 01:57 Received Sodium Chloride 0.9% [Normal Saline] 1,000 ml Med 03/07/20 01:37 Active IV .BOLUS Sodium Chloride 0.9% [Normal Saline] 1,000 ml Med 03/07/20 01:38 Active IV .BOLUS Sodium Chloride 0.9% [Saline Flush] Med 03/07/20 01:34 Active 10 ml FLUSH ASDIRECTED PRN Saline Lock Insert [OM.PC] Routine Oth 03/07/20 01:34 Ordered Medication Orders Sodium Chloride (Normal Saline) 1,000 mls @ 999 mls/hr IV .BOLUS ONE Stop: 03/07/20 02:37 Last Admin: 03/07/20 01:55 Dose: 999 mls/hr Documented by: ELEN Sodium Chloride (Normal Saline) 1,000 mls @ 999 mls/hr IV .BOLUS ONE Stop: 03/07/20 02:38 Sodium Chloride (Saline Flush) 10 ml FLUSH ASDIRECTED PRN PRN Reason: Keep Vein Open Labs: Laboratory Tests 03/07/20 03/07/20 Range/Units 01:57 01:57 WBC 11.7 H (4.5-11.0) K/uL RBC 4.94 (3.30-5.50) M/uL Hgb 13.0 (12.0-15.0) g/dL Hct 39.8 (36.0-48.0) % MCV 81 (80-98) fL MCH 26 L (27-31) pg MCHC 33 (32-36) % Plt Count 353 (150-400) K/uL Neut % (Auto) 55 (36-66) % Lymph % (Auto) 34 (24-44) % Stark % (Auto) 9 H (2-6) % Eos % (Auto) 2 (2-4) % Baso % (Auto) 0 (0-1) % Sodium 130 L (140-148) mmol/L Potassium 4.1 (3.6-5.2) mmol/L Chloride 97 L (100-108) mmol/L Carbon Dioxide 25 D (21-32) mmol/L Anion Gap 12.1 (5.0-14.0) mmol/L BUN 10 D (7-18) mg/dL Creatinine 0.9 D (0.6-1.0) mg/dL Est Cr Clr Drug Dosing 79.34 mL/min Estimated GFR (MDRD) > 60 (>60) Glucose 104 (74-106) mg/dL Calcium 9.3 D (8.5-10.1) mg/dL Total Bilirubin 0.2 (0.2-1.0) mg/dL AST 22 D (15-37) U/L ALT 35 D (12-78) U/L Alkaline Phosphatase 83 (46-116) U/L Total Protein 7.2 (6.4-8.2) g/dL Albumin 3.2 L (3.4-5.0) g/dL Globulin 4.0 H (2.3-3.5) g/dL Albumin/Globulin Ratio 0.8 L (1.2-2.2) Meds: Medications Generic Name Dose Route Start Last Admin Trade Name Freq PRN Reason Stop Dose Admin Sodium Chloride 1,000 mls @ 999 mls/hr 03/07/20 01:37 03/07/20 01:55 Normal Saline IV 03/07/20 02:37 999 mls/hr .BOLUS ONE Administration Sodium Chloride 1,000 mls @ 999 mls/hr 03/07/20 01:38 Normal Saline IV 03/07/20 02:38 .BOLUS ONE Sodium Chloride 10 ml 03/07/20 01:34 Saline Flush FLUSH ASDIRECTED PRN Keep Vein Open Discontinued Medications Generic Name Dose Route Start Last Admin Trade Name Freq PRN Reason Stop Dose Admin Hydrocortisone Sodium Succinate 100 mg 03/07/20 01:34 03/07/20 01:53 Solu-Cortef IVPUSH 03/07/20 01:35 100 mg ONETIME ONE Administration - Re-Assessments/Exams Free Text/Narrative Re-Assessment/Exam: 03/07/20 02:29 labs reviewed showing a normal CBC. The comprehensive metabolic panel shows a sodium of 130 Departure - Departure Time of Disposition: 02:30 Disposition: Admitted As Inpatient 66 Condition: Good Clinical Impression: Addisonian crisis - Discharge Information Referrals: PCP,None [Primary Care Provider] - Forms: ED Department Discharge Sepsis Event Note (ED) - Evaluation Sepsis Screening Result: No Definite Risk - Focused Exam Vital Signs: Vital Signs Temp Pulse Resp BP Pulse Ox 03/07/20 02:15 36.1 C 81 12 91/49 L 96 03/07/20 02:05 36.1 C 105 H 16 114/76 98 03/07/20 01:14 36.1 C 105 H 16 114/76 98 - My Orders Last 24 Hours: My Active Orders 03/07/20 01:34 Sodium Chloride 0.9% [Saline Flush] 10 ml FLUSH ASDIRECTED PRN Saline Lock Insert [OM.PC] Routine 03/07/20 01:37 Sodium Chloride 0.9% [Normal Saline] 1,000 ml IV .BOLUS 03/07/20 01:38 Sodium Chloride 0.9% [Normal Saline] 1,000 ml IV .BOLUS 03/07/20 01:57 ACTH, PLASMA Stat - Assessment/Plan Last 24 Hours: My Active Orders 03/07/20 01:34 Sodium Chloride 0.9% [Saline Flush] 10 ml FLUSH ASDIRECTED PRN Saline Lock Insert [OM.PC] Routine 03/07/20 01:37 Sodium Chloride 0.9% [Normal Saline] 1,000 ml IV .BOLUS 03/07/20 01:38 Sodium Chloride 0.9% [Normal Saline] 1,000 ml IV .BOLUS 03/07/20 01:57 ACTH, PLASMA Stat I discussed the case with Dr. Rodas and recommend admission of the patient for further infusion of hydrocortisone 50 mg every 6 hours. Sepsis Event Note (ED) - Evaluation Sepsis Screening Result: No Definite Risk - Focused Exam Vital Signs: Vital Signs Temp Pulse Resp BP Pulse Ox 03/07/20 02:15 36.1 C 81 12 91/49 L 96 03/07/20 02:05 36.1 C 105 H 16 114/76 98 03/07/20 01:14 36.1 C 105 H 16 114/76 98 - Problem List & Annotations (1) Addisonian crisis SNOMED Code(s): 36502388 Code(s): E27.2 - ADDISONIAN CRISIS Status: Acute Priority: High Current Visit: Yes - Problem List Review Problem List Initiated/Reviewed/Updated: Yes - My Orders Last 24 Hours: My Active Orders 03/07/20 01:34 Sodium Chloride 0.9% [Saline Flush] 10 ml FLUSH ASDIRECTED PRN Saline Lock Insert [OM.PC] Routine 03/07/20 01:37 Sodium Chloride 0.9% [Normal Saline] 1,000 ml IV .BOLUS 03/07/20 01:38 Sodium Chloride 0.9% [Normal Saline] 1,000 ml IV .BOLUS 03/07/20 01:57 ACTH, PLASMA Stat - Assessment/Plan Last 24 Hours: My Active Orders 03/07/20 01:34 Sodium Chloride 0.9% [Saline Flush] 10 ml FLUSH ASDIRECTED PRN Saline Lock Insert [OM.PC] Routine 03/07/20 01:37 Sodium Chloride 0.9% [Normal Saline] 1,000 ml IV .BOLUS 03/07/20 01:38 Sodium Chloride 0.9% [Normal Saline] 1,000 ml IV .BOLUS 03/07/20 01:57 ACTH, PLASMA Stat
--- NOTE | 2020-03-07 02:59 | PCM.HP.2 ---
H&P History of Present Illness - General Date of Service: 03/07/20 Admit Problem/Dx: Admission Diagnosis/Problem Admission Diagnosis/Problem Dukes's disease Source of Information: Patient, Family, Old Records, Provider, RN Notes Reviewed History Limitations: Reports: No Limitations - History of Present Illness Initial Comments - Free Text/Narative: Ms. Melissa is a 39-year-old woman who was admitted through the emergency department with weakness, lightheadedness, nausea, secondary to adrenal insufficiency. She has had a known history of Dukes's disease and has started to run out of her hydrocortisone over the past 2 weeks. Starting 2 weeks ago she decreased her dose because of limited supply and ran out approximately 6 days ago. She is attempted to obtain refill through the clinic, but this has been unsuccessful. Since then has become progressively more fatigued weak and lightheaded. She presented to the emergency department this evening because of worsening symptoms. 3 years ago experienced crisis and presented to the emergency department, shortly after presenting experience cardiac arrest requiring CPR and prolonged intervention. 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 There is also a history of pulmonary emboli. Lower Back Pain Score (Numeric/FACES): 8 - Related Data Allergies/Adverse Reactions: Allergies Allergy/AdvReac Type Severity Reaction Status Date / Time No Known Allergies Allergy Verified 03/07/20 01:26 Home Medications: Home Meds Hydrocortisone [Cortef] 1.5 tab PO DAILY 11/26/12 [History] Fludrocortisone [Florinef] 0.1 mg PO BID 12/09/16 [History] Hydrocortisone 10 mg PO BEDTIME 12/09/16 [History] Albuterol Sulfate [Proair Hfa] 2 puff IH Q4H PRN 03/07/20 [History] DULoxetine [Cymbalta] 60 mg PO DAILY 03/07/20 [History] atorvaSTATin Calcium [Lipitor] 40 mg PO DAILY 03/07/20 [History] cloNIDine HCL [Catapres] 0.1 mg PO BID 03/07/20 [History] tiZANidine HCl [Zanaflex] 2 mg PO Q8H PRN 03/07/20 [History] Past Medical History Cardiovascular History: Reports: Blood Clots/VTE/DVT, Prior Cardiac Arrest, Other (See Below) Other Cardiovascular History: blood clot in heart in 2016 Respiratory History: Reports: Asthma, Bronchitis, Recurrent, PE Genitourinary History: Reports: Acute Renal Failure [employer]IST History: Reports: Musculoskeletal History: Reports: Osteoarthritis, Other (See Below) Other Musculoskeletal History: spinalstenosis Psychiatric History: Reports: Anxiety, Depression 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 Hematologic History: Reports: Anticoagulation Therapy, Blood Transfusion(s) Immunologic History: Reports: Immunosuppression, Other (See Below) 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 - Infectious Disease History Infectious Disease History: Reports: Chicken Pox, Mononucleosis, MRSA, Other (See Below) Other Infectious Disease History: 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 - Past Surgical History HEENT Surgical History: Reports: Naso-Sinus Surgery, Tonsillectomy Musculoskeletal Surgical History: Reports: Amputation Other Musculoskeletal Surgeries/Procedures:: R BKA Social & Family History - Tobacco Use Tobacco Use Status *Q: Current Every Day Tobacco User Years of Tobacco use: 25 Packs/Tins Daily: 1 Used Tobacco, but Quit: No Second Hand Smoke Exposure: Yes - Caffeine Use Caffeine Use: Reports: Coffee, Soda - Recreational Drug Use Recreational Drug Use: No - Living Situation & Occupation Living situation: Reports: Single, with Significant Other Occupation: Employed H&P Review of Systems - Review of Systems: Review Of Systems: See Below General: Reports: Malaise, Weakness, Fatigue HEENT: Reports: No Symptoms Pulmonary: Reports: No Symptoms Cardiovascular: Reports: No Symptoms Gastrointestinal: Reports: Nausea, Vomiting. Denies: Abdominal Pain, Black Stool, Bloody Stool, Constipation, Diarrhea, Difficulty Swallowing, Distension Genitourinary: Reports: No Symptoms Musculoskeletal: Reports: No Symptoms Skin: Reports: No Symptoms Psychiatric: Reports: No Symptoms Neurological: Reports: No Symptoms Hematologic/Lymphatic: Reports: No Symptoms Immunologic: Reports: No Symptoms Exam - Exam Exam: See Below - Vital Signs Vital Signs: Last Vital Signs Temp 97.0 F 03/07/20 02:15 Pulse 81 03/07/20 02:15 Resp 12 03/07/20 02:15 BP 91/49 L 03/07/20 02:15 Pulse Ox 96 03/07/20 02:15 Weight: 186 lb - Exam Quality Assessment: DVT Prophylaxis General: Alert, Oriented, Cooperative, Mild Distress HEENT: Conjunctiva Clear, Hearing Intact, Mucosa Moist & [place], Normal Nasal Septum, Posterior Pharynx Clear, Pupils Equal Neck: Supple, Trachea Midline, +2 Carotid Pulse wo Bruit Lungs: Clear to Auscultation, Normal Respiratory Effort Cardiovascular: Regular Rate, Regular Rhythm, Normal S1, Normal S2. No: Systol ic Murmur, Diastolic Murmur GI/Abdominal Exam: Soft, Non-Tender, No Organomegaly, No Distention Back Exam: Normal Inspection, Full Range of Motion Extremities: Non-Tender, Other (Status post amputation right lower leg) Skin: Warm, Dry, Intact Neurological: Cranial Nerves Intact, Strength Equal Bilateral, Normal Speech, Normal Tone, Sensation Intact. No: Focal Deficit Neuro Extensive - Mental Status: Alert, Oriented x3, Normal Mood/Affect, Normal Cognition, Memory Intact - Patient Data Lab Results Last 24 hrs: Laboratory Results - last 24 hr 03/07/20 03/07/20 Range/Units 01:57 01:57 WBC 11.7 H (4.5-11.0) K/uL RBC 4.94 (3.30-5.50) M/uL Hgb 13.0 (12.0-15.0) g/dL Hct 39.8 (36.0-48.0) % MCV 81 (80-98) fL MCH 26 L (27-31) pg MCHC 33 (32-36) % Plt Count 353 (150-400) K/uL Neut % (Auto) 55 (36-66) % Lymph % (Auto) 34 (24-44) % [place] % (Auto) 9 H (2-6) % Eos % (Auto) 2 (2-4) % Baso % (Auto) 0 (0-1) % Sodium 130 L (140-148) mmol/L Potassium 4.1 (3.6-5.2) mmol/L Chloride 97 L (100-108) mmol/L Carbon Dioxide 25 D (21-32) mmol/L Anion Gap 12.1 (5.0-14.0) mmol/L BUN 10 D (7-18) mg/dL Creatinine 0.9 D (0.6-1.0) mg/dL Est Cr Clr Drug Dosing 79.34 mL/min Estimated GFR (MDRD) > 60 (>60) Glucose 104 (74-106) mg/dL Calcium 9.3 D (8.5-10.1) mg/dL Total Bilirubin 0.2 (0.2-1.0) mg/dL AST 22 D (15-37) U/L ALT 35 D (12-78) U/L Alkaline Phosphatase 83 (46-116) U/L Total Protein 7.2 (6.4-8.2) g/dL Albumin 3.2 L (3.4-5.0) g/dL Globulin 4.0 H (2.3-3.5) g/dL Albumin/Globulin Ratio 0.8 L (1.2-2.2) Result Diagrams: 03/07/20 01:57 03/07/20 01:57 Sepsis Event Note - Evaluation Sepsis Screening Result: No Definite Risk - Focused Exam Vital Signs: Vital Signs Temp Pulse Resp BP Pulse Ox 03/07/20 02:15 97.0 F 81 12 91/49 L 96 03/07/20 02:05 97 F 105 H 16 114/76 98 03/07/20 01:14 97 F 105 H 16 114/76 98 *Q Meaningful Use (ADM) - VTE Risk Assess *Q Each Risk Factor Represents 1 Point: Obesity ( BMI > 25 kg/m2) Total Score 1 Point Risk Factors: 1 Each Risk Factor Represents 2 Points: None Total Score 2 Point Risk Factors: 0 Each Risk Factor Represents 3 Points: History of DVT/PE Total Score 3 Point Risk Factors: 3 Each Risk Factor Represents 5 Points: None Total Score 5 Point Risk Factors: 0 Venous Thromboembolism Risk Factor Score *Q: 4 Problem List Initiated/Reviewed/Updated: Yes Orders Last 24hrs: Active Orders 24 hr Category Date Time Status Patient Status Manage Transfer [TRANSFER] Routine ADT 03/07/20 02:51 Ordered ACTH, PLASMA Stat Lab 03/07/20 01:57 Received Sodium Chloride 0.9% [Saline Flush] Med 03/07/20 01:34 Active 10 ml FLUSH ASDIRECTED PRN Saline Lock Insert [OM.PC] Routine Oth 03/07/20 01:34 Ordered Resuscitation Status Routine Resus Stat 03/07/20 02:53 Ordered Medication Orders Sodium Chloride (Saline Flush) 10 ml FLUSH ASDIRECTED PRN PRN Reason: Keep Vein Open Assessment/Plan Comment:: ASSESSMENT AND PLAN PRINCE'S DISEASE-she has run out of her hydrocortisone. Lower dose for the first week and no medication over this last week. She is developed progressive weakness lightheadedness with nausea. History of cardiac arrest related to adrenal insufficiency 3 years ago. She is feeling significantly improved after receiving 100 mg of hydrocortisone in the emergency department as well as IV fluids. Sodium level mildly low, potassium level is within normal range -Hydrocortisone 50 mg IV every 6 hours x4 doses -Normal saline 125 mg/h -ACTH and cortisol level pending -Follow-up electrolytes Sunday morning MAINTENANCE ISSUES -DVT prophylaxis; Lovenox 40 mg subcu daily -GI prophylaxis; not indicated -Blackman catheter; not indicated -Nutrition; regular diet -Nicotine dependence; not required CODE STATUS-full code ADMISSION STATUS-patient will be admitted to inpatient status, expect at least a 2 night hospital stay for evaluation and management of problems as outlined above. At the time of this admission I do not reasonably expected evaluation and management of this problem will require more than a 96 hour hospital stay. DISPOSITION-anticipate discharge to home after the hospital stay. PRIMARY CARE PROVIDER-Suzanne Cruz - Mortality Measure Prognosis:: Good
[2020-03-07] MEDS ORDERED: Albuterol 8 GM Inhaler INH PRN (03:16)
[2020-03-07] MEDS ORDERED: Polyethylene Glycol 3350 Powder 17 GM Packet PO PRN (03:16)
[2020-03-07] MEDS ORDERED: Acetaminophen 325 MG Tab PO PRN (03:16)
[2020-03-07] MEDS ORDERED: Enoxaparin 40 MG/0.4 ML Syringe SUBCUT SCH (03:16)
[2020-03-07] MEDS ORDERED: Ondansetron 4 MG/2 ML SDV IV PRN (03:16)
[2020-03-07] MEDS: Sodium Chloride 0.9% 1,000 ML IV SCH ×2 (04:15→12:18)
[2020-03-07] MEDS: tiZANidine 2 MG Tab PO PRN ×2 (04:21→22:04)
[2020-03-07] MEDS: Hydrocortisone Sodium Succinate 100 MG/2 ML SDV IVPUSH SCH ×3 (07:33→19:20)
[2020-03-07] MEDS: atorvaSTATin 20 MG Tab PO SCH (09:44)
[2020-03-07] MEDS: Fludrocortisone 0.1 MG Tab PO SCH ×2 (09:44→22:04)
[2020-03-07] MEDS: DULoxetine 30 MG Cap PO SCH (09:44)
[2020-03-07] MEDS: Nicotine 21 MG/24 Hr Patch TRDERM SCH (14:11)
[2020-03-07] MEDS ORDERED: Calcium Carbonate 500 MG Tab.Chew PO PRN (21:48)
[2020-03-08] MEDS: Hydrocortisone Sodium Succinate 100 MG/2 ML SDV IVPUSH SCH (01:35)
[2020-03-08] MEDS: DULoxetine 30 MG Cap PO SCH (08:38)
[2020-03-08] MEDS: Fludrocortisone 0.1 MG Tab PO SCH (08:38)
[2020-03-08] MEDS: atorvaSTATin 20 MG Tab PO SCH (08:39)
[2020-03-08] MEDS: Nicotine 21 MG/24 Hr Patch TRDERM SCH (08:40)
[2020-03-08 08:47] VITALS: BP 108/49; PULSE 70
[2020-03-08] MEDS ORDERED: Enoxaparin 40 MG/0.4 ML Syringe SUBCUT SCH (09:00)
--- NOTE | 2020-03-08 10:20 | PCM.DCSUM1 ---
Discharge Summary - Hospital Course Brief History: Ms. Melissa is a 39-year-old woman who was admitted through the emergency department with weakness, lightheadedness, and nausea, secondary to addisonian crisis. - Discharge Data Discharge Date: 03/08/20 Discharge Disposition: Home, Self-Care 01 Condition: Stable - Referral to Home Health Primary Care Physician: PCP None - Discharge Diagnosis/Problem(s) (1) Addisonian crisis SNOMED Code(s): 52702372 ICD Code: E27.2 - ADDISONIAN CRISIS Status: Acute Priority: High Current Visit: Yes - Patient Summary/Data Hospital Course: Ms. Melissa is a 39-year-old woman who was admitted through the emergency department with weakness, lightheadedness, nausea, secondary to adrenal insufficiency. She has had a known history of Lafayette's disease and has started to run out of her hydrocortisone over the past 2 weeks. Starting 2 weeks ago she decreased her dose because of limited supply and ran out approximately 6 days ago. She is attempted to obtain refill through the clinic, but this has been unsuccessful. Since then has become progressively more fatigued weak and lightheaded. She presented to the emergency department this evening because of worsening symptoms. 3 years ago experienced crisis and presented to the emergency department, shortly after presenting experience cardiac arrest requiring CPR and prolonged intervention. 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 There is also a history of pulmonary emboli. While in the emergency department she did receive hydrocortisone 100 mg IV and almost immediately noted improvement in her symptoms. She was given IV fluid bolus in the emergency department and continuous infusion of IV fluid after admission. She was placed on protocol for addisonian crisis and received further hydrocortisone 50 mg IV every 6 hours x4 doses. By the day of discharge she was feeling significantly improved and was started back on her usual replacement doses of hydrocortisone. On discharge she will be given a prescription for hydrocortisone and a follow-up appointment will be scheduled with her primary care provider within 1 week. Activity will be as tolerated and she will resume her usual diet. - Patient Instructions Diet: Usual Diet as Tolerated Activity: As Tolerated Other/Special Instructions: Please schedule follow-up appointment with primary care provider within 1 week. - Discharge Plan *PRESCRIPTION DRUG MONITORING PROGRAM REVIEWED*: Not Applicable *COPY OF PRESCRIPTION DRUG MONITORING REPORT IN PATIENT JENNYFER: Not Applicable Prescriptions/Med Rec: Hydrocortisone [Cortef] 1.5 tab PO DAILY #45 DULoxetine [Cymbalta] 60 mg PO DAILY #30 cap Hydrocortisone 10 mg PO BEDTIME #30 atorvaSTATin Calcium [Lipitor] 40 mg PO DAILY #30 Home Medications: Home Meds Fludrocortisone [Florinef] 0.1 mg PO BID 12/09/16 [History] Albuterol Sulfate [Proair Hfa] 2 puff IH Q4H PRN 03/07/20 [History] cloNIDine HCL [Catapres] 0.1 mg PO BID 03/07/20 [History] tiZANidine HCl [Zanaflex] 2 mg PO Q8H PRN 03/07/20 [History] DULoxetine [Cymbalta] 60 mg PO DAILY #30 cap 03/08/20 [Rx] Hydrocortisone 10 mg PO BEDTIME #30 03/08/20 [Rx] Hydrocortisone [Cortef] 1.5 tab PO DAILY #45 03/08/20 [Rx] atorvaSTATin Calcium [Lipitor] 40 mg PO DAILY #30 03/08/20 [Rx] Referrals: Suzanne Cruz PA-C [Physician Panel [facility]] - - Discharge Summary/Plan Comment DC Time >30 min.: No - Patient Data Vitals - Most Recent: Last Vital Signs Temp 97.2 F 03/08/20 08:46 Pulse 70 03/08/20 08:46 Resp 18 03/08/20 08:46 BP 108/49 L 03/08/20 08:46 Pulse Ox 96 03/08/20 08:46 Weight - Most Recent: 197 lb 9.605 oz I&O - Last 24 hours: Intake & Output 03/07/20 03/08/20 03/08/20 22:59 06:59 14:59 Intake Total 2600 Balance 2600 Lab Results - Last 24 hrs: Laboratory Results - last 24 hr 03/08/20 Range/Units 04:10 Sodium 139 L (140-148) mmol/L Potassium 4.2 (3.6-5.2) mmol/L Chloride 105 (100-108) mmol/L Carbon Dioxide 25 (21-32) mmol/L Anion Gap 13.2 (5.0-14.0) mmol/L BUN 9 (7-18) mg/dL Creatinine 0.7 (0.6-1.0) mg/dL Est Cr Clr Drug Dosing 102.01 mL/min Estimated GFR (MDRD) > 60 (>60) Glucose 141 H (74-106) mg/dL Calcium 9.0 (8.5-10.1) mg/dL Med Orders - Current: Current Medications Acetaminophen (Tylenol) 650 mg PO Q4H PRN PRN Reason: Pain (Mild 1-3)/fever Albuterol (Ventolin Hfa) 0 gm INH Q4H PRN PRN Reason: Wheezing Atorvastatin Calcium (Lipitor) 40 mg PO DAILY [facility] Last Admin: 03/08/20 08:39 Dose: 40 mg Documented by: Calcium Carbonate/Glycine (Tums) 1,000 mg PO Q2H PRN PRN Reason: Indigestion Last Admin: 03/07/20 22:04 Dose: 1,000 mg Documented by: Duloxetine HCl (Cymbalta) 60 mg PO DAILY [facility] Last Admin: 03/08/20 08:38 Dose: 60 mg Documented by: Enoxaparin Sodium (Lovenox) 40 mg SUBCUT DAILY [facility] Last Admin: 03/08/20 08:38 Dose: 40 mg Documented by: Fludrocortisone Acetate (Florinef) 0.1 mg PO BID [facility] Last Admin: 03/08/20 08:38 Dose: 0.1 mg Documented by: Hydrocortisone (Cortef) 15 mg PO DAILY [facility] Last Admin: 03/08/20 09:24 Dose: 15 mg Documented by: Hydrocortisone (Cortef) 10 mg PO BEDTIME [facility] Nicotine (Habitrol) 21 mg TRDERM DAILY [facility] Last Admin: 03/08/20 08:40 Dose: 21 mg Documented by: Ondansetron HCl (Zofran) 4 mg IV Q4H PRN PRN Reason: Nausea/Vomiting Polyethylene Glycol (Miralax) 17 gm PO DAILY PRN PRN Reason: Constipation Sodium Chloride (Saline Flush) 10 ml FLUSH ASDIRECTED PRN PRN Reason: Keep Vein Open Tizanidine HCl (Zanaflex) 2 mg PO Q8H PRN PRN Reason: Spasms Last Admin: 03/07/20 22:04 Dose: 2 mg Documented by: Discontinued Medications Enoxaparin Sodium (Lovenox) 40 mg SUBCUT DAILY [facility] Last Admin: 03/07/20 04:15 Dose: 40 mg Documented by: Hydrocortisone Sodium Succinate (Solu-Cortef) 100 mg IVPUSH ONETIME ONE Stop: 03/07/20 01:35 Last Admin: 03/07/20 01:53 Dose: 100 mg Documented by: Hydrocortisone Sodium Succinate (Solu-Cortef) 50 mg IVPUSH Q6H [facility] Stop: 03/08/20 01:01 Last Admin: 03/08/20 01:35 Dose: 50 mg Documented by: Sodium Chloride (Normal Saline) 1,000 mls @ 999 mls/hr IV .BOLUS ONE Stop: 03/07/20 02:37 Last Admin: 03/07/20 01:55 Dose: 999 mls/hr Documented by: Sodium Chloride (Normal Saline) 1,000 mls @ 999 mls/hr IV .BOLUS ONE Stop: 03/07/20 02:38 Last Admin: 03/07/20 02:56 Dose: 999 mls/hr Documented by: Sodium Chloride (Normal Saline) 1,000 mls @ 125 mls/hr IV ASDIRECTED GABRIEL Last Admin: 03/07/20 12:18 Dose: 125 mls/hr Documented by: Sodium Chloride (Saline Flush) 10 ml FLUSH ASDIRECTED PRN PRN Reason: Keep Vein Open Last Admin: 03/07/20 03:03 Dose: 10 ml Documented by: - Exam Quality Assessment: Reports: DVT Prophylaxis General: Reports: Alert, Oriented, Cooperative, No Acute Distress Lungs: Reports: Clear to Auscultation, Normal Respiratory Effort Cardiovascular: Reports: Regular Rate, Regular Rhythm, No Murmurs GI/Abdominal Exam: Soft, Non-Tender, No Organomegaly, No Distention Extremities: Non-Tender, No Pedal Edema
== END 2020-03-08 11:08 | disposition home or self-care (01) | DRG 644 ==
LOC: JP.ED 01:11 → JP.ICU 02:51
PROVIDERS: ADMIT Hospitalist; ATTEND Hospitalist
DX: E27.2 Addisonian crisis (principal); D84.9 Immunodeficiency, unspecified; J45.909 Unspecified asthma, uncomplicated; M19.90 Unspecified osteoarthritis, unspecified site; F41.9 Anxiety disorder, unspecified; F32.9 Major depressive disorder, single episode, unspecified; F17.210 Nicotine dependence, cigarettes, uncomplicated; Z89.511 Acquired absence of right leg below knee; Z86.711 Personal history of pulmonary embolism; Z79.899 Other long term (current) drug therapy; Z86.74 Personal history of sudden cardiac arrest; Z79.01 Long term (current) use of anticoagulants; Z86.14 Personal history of Methicillin resistant Staphylococcus aureus infection; Z90.89 Acquired absence of other organs
CPT/HCPCS: 36415; 80048; 80053; 82024; 85025; 96374; 99284; 99285-25; A9270-GY; J1650; J1720; J7030